=== PATIENT | male | born 1955 | race Caucasian/White ===

== ENCOUNTER 2018-09-22 22:50 | Observation (INO) ==
[2018-09-23] MEDS ORDERED: Ondansetron 4 MG/2 ML VIAL IVP PRN (01:25)
[2018-09-23] MEDS ORDERED: Naloxone 0.4 MG/ML INJ IVP PRN (01:25)
--- NOTE | 2018-09-23 02:25 | Internal Med History&Physical ---
Date of Encounter: 09/23/18 Time of Encounter: 02:23 Internal Medicine - H&P: HPI Chief complaint: Chest pain Admitted From: Emergency Dept Plans for Post Hospital Care: Home History of present illness: Mr. Lewis is a 63 year old male with history of hypertension presents with chest pain and near syncopal episodes. Patient states that over the last couple days he has had episodes of chest pressure that occur in the center of his chest. They occur while he is working but today occurred while at rest. He states during these episodes he has a lightheaded and "dream" like feeling and needs to hold onto something. He denies any actual syncopal episodes. He states he has had twinges of chest pain for years but has never had anything like this. He nitroglycerin given in the emergency department seemed to help this pain. Nothing seems to make the pain worse. He reports he felt clammy with the pain today. He denies any shortness of breath or dyspnea. Discussed with patient who wishes to be full code. Past Med Surg Social Fam HX - Past Medical History Medical history: hypertension Additional medical history: broken left leg, spinal meningitis Psychiatric history: no psych history - Past Surgical History Surgical History: other Additional surgical history: hernia repair with mesh - Social History Smoking Status: Never smoker Smokeless Tobacco Status: Yes Alcohol use: occasionally Drug use: none - Family History Father Living Status: Hx Family Cardiac Disorders: Yes - Additional Family History Additional family history: Patient reports his father had multiple heart attac ks. Denies any other significant family history. Internal Medicine - H&P: Meds Acetaminophen [Tylenol] 650 mg PO Q6HR PRN tablet 06/27/17 [Rx] Cyanocobalamin (Vitamin B-12) [Vitamin B-12] 1,000 mcg PO DAILY 06/27/17 [History] Lisinopril [Zestril] 2.5 mg PO DAILY 06/27/17 [History] Thiamine Mononitrate [Vitamin B-1] 100 mg PO DAILY 06/27/17 [History] amLODIPine [Norvasc] 2.5 mg PO DAILY 06/27/17 [History] Allergy/AdvReac Type Severity Reaction Status Date / Time No Known Allergies Allergy Verified 06/20/17 08:26 All Systems PM: A 10-system review of systems was performed and is negative for pertinent findings except as documented above in the HPI. Review of systems: 10 point review of systems was obtained and negative other than stated below: - Constitutional Constitutional: no chills, no fever(s) - EENT Eyes: no blurry vision - Cardiovascular Cardiovascular ROS IM: chest pain, lightheadedness, no dyspnea - Respiratory Respiratory: no cough, no dyspnea - Gastrointestinal Gastrointestinal: no abdominal pain - Constitutional Vitals: Temp Pulse Resp BP Pulse Ox 98.3 F 68 14 129/76 95 09/23/18 00:55 09/23/18 00:55 09/23/18 00:55 09/23/18 00:55 09/23/18 00:55 General appearance: Present: A&O X 3, pleasant, no acute distress Exam: . - Head Head exam: Present: atraumatic, normal inspection, normocephalic - Eye Eye exam: Present: EOMI, PERRL - ENT ENT exam: Present: mucous membranes moist - Neck Neck exam general surgery: Present: supple. Absent: tenderness - Respiratory Respiratory exam: Present: CTAB. Absent: rales, rhonchi, wheezes - Cardiovascular Cardiovascular exam: Present: RRR. Absent: gallop, rubs, systolic murmur Additional comments: Anterior chest wall tender to palpation - GI/Abdominal GI/Abdominal exam: Present: normal bowel sounds, soft. Absent: distended, tenderness - Extremities Exam Extremities exam: Present: warm. Absent: pedal edema, tenderness - Neurological Exam Neurological exam: Present: alert, CN II-XII intact, oriented X3, no focal deficits - Psychiatric Psychiatric exam: Present: normal affect, normal mood - Skin Skin exam: Present: dry, intact, warm - Assessment and Plan (1) Chest pain Current Visit: No Status: Acute Assessment and plan: Patient presents with substernal chest pain that is associated with lightheaded feelings. He has significant family history but no other risk factors. No history of cardiac disease. Initial troponin negative. EKG reviewed and shows normal sinus rhythm with no ischemic changes. Given his symptoms we will check echocardiogram and exercise stress test with nuclear imaging. Keep patient nothing by mouth for testing. Qualifiers: Chest pain type: unspecified Qualified Code(s): R07.9 - Chest pain, unspecified (2) Hypertension Current Visit: Yes Status: Acute Assessment and plan: Blood pressure under good control to time. Patient nothing by mouth for stress test as above. Restart home medications after stress testing Qualifiers: Hypertension type: unspecified Qualified Code(s): I10 - Essential (primary) hypertension (3) DVT prophylaxis Current Visit: Yes Status: Acute Assessment and plan: Heparin 5000 units subcutaneous twice a day - Time Spent With Patient Total time spent is greater than 50% in coordination of care (as documented) at patient's floor/unit and/or counseling patient:
[2018-09-23 03:46] LABS: Basophils % 0.1 %; Eosinophils % 0.6 %; Hematocrit 35.1 % (37.5-50.1); Hemoglobin 12.1 g/dL (12.9-16.9); Immature Granulocytes % 0.3 % (0-4); Lymphocytes # 1.7 K/mcL (0.6-4.6); Mean Corpuscular HGB Conc 34.5 g/dL (31.6-35.5); Mean Corpuscular Hemoglobin 34.2 pg (28.0-33.3); Mean Corpuscular Volume 99.2 fL (83.0-100.0); Mean Platelet Volume 8.7 fL (9.4-12.4); Monocytes # 0.6 K/mcL (0.0-1.3); Monocytes % 8.6 %; Neutrophils # 4.8 K/mcL (1.6-8.9); Platelet Count 208 K/mcL (140-400); Red Blood Count 3.54 M/mcL (4.19-5.50); Red Cell Distribution Width 12.6 % (11.5-14.5); Segmented Neutrophils % 66.4 %
[2018-09-23 04:05] LABS: BUN/Creatinine Ratio 8 (6-26); Blood Urea Nitrogen 6 mg/dL (8-23); Calcium 8.8 mg/dL (8.6-10.3); Carbon Dioxide 25 mEq/L (23-29); Chloride 103 mEq/L (98-107); Glucose 102 mg/dL (70-105); Magnesium 2.2 mg/dL (1.6-2.6); Osmolality,Calculated 280 (280-300); Potassium 3.6 mEq/L (3.5-5.1); Sodium 136 mEq/L (136-145); eGFR For Non-African Americans > 60 (> 60)
[2018-09-23] MEDS ORDERED: *HR* Heparin 5,000 UNIT/ML VIAL SQ SCH (06:00)
[2018-09-23 10:45] VITALS: BP 130/76
--- NOTE | 2018-09-23 14:38 | Discharge Summary ---
- NOTES TO OUTPATIENT PROVIDER Notes to Outpatient Provider: f/u with PCP in one week. Orders not resulted at time of discharge: Pending orders 09/23/18 05:49 NM nik perf SPECT multi [NM] Routine Date of Encounter: 09/23/18 Time of Encounter: 14:34 - Discharge Diagnosis (1) Chest pain Priority: Primary Status: Acute Qualifiers: Chest pain type: unspecified Qualified Code(s): R07.9 - Chest pain, unspecified (2) Anxiety Priority: Secondary Status: Acute (3) Hypertension Priority: Secondary Status: Acute Qualifiers: Hypertension type: unspecified Qualified Code(s): I10 - Essential (primary) hypertension (4) DVT prophylaxis Priority: Secondary Status: Acute Hospital course: Mr. Lewis is a 63 year old male with history of hypertension pt presented to [facility] with chest pain and near syncopal episodes. Patient stated that over the last couple days he has had episodes of chest pressure that occur in the center of his chest. They occur while he is working but today occurred while at rest. He states during these episodes he has a lightheaded and "dream" like feeling and needs to hold onto something. Patient was admitted in the hospital and placed on library monitor. His serial troponin came back is negative. His EKG did not show any acute ischemic changes, no ST, T changes noticed. He did go for nuclear stress test which came back is negative for any ischemia. Patient does have anxiety/panic attacks, recommended to talk to PCP about this also see if he can follow-up with the behavioral health specialist. He denied any more active chest pain. Will discharge him home in a stable condi tion today - Time Spent with Patient Total time spent providing and/or coordinating discharge services: - Discharge Medications Prescriptions: New Aspirin Enteric Coated [Aspirin EC] 81 mg PO DAILY #30 tablet. Continue Thiamine Mononitrate [Vitamin B-1] 100 mg PO DAILY Lisinopril [Zestril] 2.5 mg PO DAILY amLODIPine [Norvasc] 2.5 mg PO DAILY Cyanocobalamin (Vitamin B-12) [Vitamin B-12] 1,000 mcg PO DAILY Acetaminophen [Tylenol] 650 mg PO Q6HR PRN tablet PRN Reason: Pain Home Medications: Acetaminophen [Tylenol] 650 mg PO Q6HR PRN tablet 06/27/17 [Rx] Cyanocobalamin (Vitamin B-12) [Vitamin B-12] 1,000 mcg PO DAILY 06/27/17 [History] Lisinopril [Zestril] 2.5 mg PO DAILY 06/27/17 [History] Thiamine Mononitrate [Vitamin B-1] 100 mg PO DAILY 06/27/17 [History] amLODIPine [Norvasc] 2.5 mg PO DAILY 06/27/17 [History] Aspirin Enteric Coated [Aspirin EC] 81 mg PO DAILY #30 tablet. 09/23/18 [Rx] Allergies/Adverse Reactions: Allergy/AdvReac Type Severity Reaction Status Date / Time No Known Allergies Allergy Verified 06/20/17 08:26 Date of admission: 09/23/18 00:45 Primary care physician: David Henderson CNP - Constitutional Vitals: Temp Pulse Resp BP Pulse Ox 97.6 F 64 14 130/76 96 09/23/18 10:43 09/23/18 10:43 09/23/18 10:43 09/23/18 10:43 09/23/18 10:43 General appearance: Present: A&O X 3, pleasant, no acute distress Exam: Gen: Alert, awake, Oriented to time,place and person Chest: Diminished breath sounds B/L, No wheezing, No crackles, No rales Heart: S1S2+ RRR No murmurs Abd: Soft, NT, BS +, No organomegaly Ext: No edema, pulses are palpable, No calf tenderness Neuro : Benign findings Skin: No rash. - Patient Status Disposition: Home, Self-Care Condition: Good Overall status at discharge: patient is back to baseline - Discharge Instructions Follow Up With: David Henderson CNP [Primary Care Provider] - 10/03/18 11:00 am - Diet and Activity Activity: increase activity as tolerated Diet: low salt diet
--- NOTE | 2018-09-24 21:28 | Electrocardiograph Report ---
[address] [place] [address] Test Date: 2018-09-23 Pat Name: Charly Lewis Department: 115 Room: 3B Gender: M Monologist: PRAVEENA : 1955 Requested By: CHAR Leung Order Number: [id number] Reading MD: Meagan Rehman Measurements Intervals [place] Rate: 62 P: 60 WI: 158 QRS: -3 QRSD: 109 T: 32 QT: 434 QTc: 439 Interpretive Statements SINUS RHYTHM Electronically Signed On 09-24-2018 21:26:57 EDT by Meagan Rehman
== END 2018-09-23 16:05 | disposition home or self-care (01) ==
LOC: 3BNU
PROVIDERS: ADMIT Internal Medicine; ATTEND Internal Medicine